=== PATIENT | female | born 1960 | race Caucasian/White ===

== ENCOUNTER 2022-06-08 09:21 | Emergency (ER) | payer OTHER, SELFPAY ==
--- NOTE | ~2022-06-08 | XR_ITS ---
EXAMINATION: XR TIBIA AND FIBULA, RIGHT CLINICAL INFORMATION: Right leg pain and swelling. COMPARISON: None TECHNIQUE: AP and lateral views of the right tibia and fibula were obtained. FINDINGS: The bones and soft tissues are normal. No fracture. No osseous lesions. XR/XR tibia fibula RT 2V IMPRESSION: Unremarkable right tibia and fibula.
--- NOTE | ~2022-06-08 | US_ITS ---
EXAMINATION: US VENOUS ULTRASOUND WITH DOPPLER LOWER EXTREMITY, RIGHT CLINICAL INFORMATION: Right leg pain and swelling COMPARISON: None TECHNIQUE: Ultrasound of the deep veins is performed from the hip to the calf with compression sonography and color and pulse Doppler assessment. Spectral analysis with color-flow imaging is performed. FINDINGS: There is normal venous compression and respiratory variation and augmented flow. The visualized common femoral vein, superficial femoral vein, profunda femoral vein, popliteal vein, and the trifurcation region shows no evidence of deep venous thrombosis. There is no significant popliteal fossa cyst. If the patient's symptoms persist, followup ultrasound in 5 days 7 days might be of value to exclude proximal propagation from a non-visualized calf vein. US/US venous duplex LE RT IMPRESSION: No DVT demonstrated in the right lower extremity.
[2022-06-08 09:59] VITALS: BP 142/71; PULSE 77; RESP 18; TEMP 36.3; O2SAT 98; BMI 29.7
--- NOTE | 2022-06-08 10:29 | ED_ITS ---
HPI - Extremity Injury (Lower) General Chief Complaint: Extremity Injury, Lower Stated Complaint: R foot red and sore Time Seen by Provider: 06/08/22 10:20 Source: patient Mode of arrival: ambulatory Limitations: no limitations History of Present Illness HPI Narrative: 62 year old female presents to the ER with lower extremity pain on the right for the past 3 days. Legs get more swollen as the days go on. She has never had this before denies recent travel or recent surgeries. She denies any falls or injuries pain is to anterior lower gallego no redness infection no fever just pain going up her leg. complaint: other Onset (ago): day(s) Related Data Previous Rx's Medication Instructions Recorded albuterol sulfate 90 mcg/actuation 1 inh inhalation Q6H PRN shortness 06/08/22 breath activated powder of breath or wheezing #1 ea inhaler,sensor Allergies Allergy/AdvReac Type Severity Reaction Status Date / Time ibuprofen [IBUPROFEN] Allergy Unknown UNKNOWN Verified 06/08/22 10:03 ketorolac [From TORADOL] Allergy Unknown UNKNOWN Verified 06/08/22 10:03 Review of Systems Review of Systems: Review of systems: General: Patient denies any fever chills recent illness or falls Musculoskeletal: Denies back pain or body aches or other injuries HEENT: denies headache, runny nose, ear pain Respiratory: denies shortness of breath, cough Cardiovascular: no chest pain or palpitations : denies dysuria, frequency Abdomen: no nausea vomiting denies abdominal pain Extremities: right leg pain and swelling Skin: no diaphoresis Yes all other systems are reviewed and are negative PMFSH Social History Social History Advance Directives: No Advance Directives Information Provided: Yes Physical Exam Vital Signs: Vital Signs: Last Vital Signs Temp 97.4 F 06/08/22 09:59 Pulse 77 06/08/22 09:59 Resp 18 06/08/22 09:59 BP 142/71 H 06/08/22 09:59 Pulse Ox 98 06/08/22 09:59 O2 Del Method 06/08/22 09:59 BMI result Body Mass Index 29.7 General: Well-appearing well-nourished in no signs of distress HEENT: Normocephalic atraumatic Neck: No signs of JVD, no masses no tenderness or lymphadenopathy Cardiovascular: Regular rate and rhythm Respiratory: Clear to auscultation bilaterally Abdomen: Soft nontender no masses Extremities: Right anterior gallego tender to palpation no redness or swelling a ppreciated to either leg. Normal pedal pulses no signs of edema Skin: Dry warm no rashes Back: No tenderness full ROM Medical Decision Making Medical Decision Making [facility] Narrative: Will send patient for ultrasound her Wells score is significant for unilateral leg swelling for the patient I do not appreciated as well as pain to palpation of the right leg. There is no signs infection also get an x-ray to make sure there is no occult fracture. 1208 explained to the patient her x-ray and ultrasound results. Patient looks well I do not think that there is anything acute going on she states that she has been taking albuterol tablets and that the symptoms started. I told to stop taking the albuterol tablets and I will send the patient home with an albuterol inhaler. Differential Diagnosis Differential Diagnoses: The differential diagnosis associated with the presentation includes DVT acute fracture or cellulitis the pain is unilateral do not think this is signs of CHF or heart failure she states the leg is swollen night is not swollen at this time. Scores Wells DVT Localized tenderness along distribution of deep veins: 1 Unilat calf swelling > 3cm (below tib tuberosity): 1 Unilateral pitting edema: 1 Score: 3 2-tier Risk: likely risk (17-53%) 3-tier Risk: high risk (75%) Discharge Plan Discharge Clinical Impression: Arthralgia of right lower leg Patient Disposition: Home, Self-Care Instructions: Arthralgia (ED) Additional Instructions: Please call to follow up with your doctor. If you have any other concerns please return to the ED. Prescriptions: New albuterol sulfate 90 mcg/actuation aero powdr breath act w/sensor 1 inh inhalation Q6H PRN (Reason: shortness of breath or wheezing) Qty: 1 0RF
== END 2022-06-08 12:17 | disposition home or self-care (01) ==
PROVIDERS: Emergency Provider Student in an Organized Health Care Education/Training Program; PCP Internal Medicine
DX: M79.661 Pain in right lower leg (principal); R60.0 Localized edema
CPT/HCPCS: 73590; 93971; 99282; 99284